=== PATIENT | female | born 2000 | race Caucasian/White ===

== ENCOUNTER 2019-09-27 15:21 | Emergency (ER) | payer OTHER ==
[~2019-09-27] VITALS: Ht 167.6 cm; Wt 75.0 kg
--- NOTE | 2019-09-27 17:33 | NUR ---
Verbal consent obtained for SART exam. Explained rationale for friends to stay in lobby which pt okay with. Noelle, pt advocate [facility] bedside.
[2019-09-27 18:24] LABS: CLARITY,URINE TURBID (Clear); COLOR,URINE YELLOW (Yellow); GLUCOSE, URINE NEGATIVE (Neg); KETONES,URINE 40 mg/dl (Neg); LEUKOCYTE ESTERASE ,URINE LARGE (Neg); NITRITES, URINE POSITIVE (Neg); OCCULT BLOOD,URINE NEGATIVE (Neg); PROTEIN,URINE NEGATIVE (Neg); UROBILINOGEN,URINE 0.2 E.U/dL (0.2-1.0)
[2019-09-27 18:27] LABS: URINE HCG NEGATIVE (NEG)
[2019-09-27 18:28] LABS: UA COLLECTION TYPE VOIDED
[2019-09-27 18:30] LABS: MUCUS STRANDS MANY /LPF (Neg); SQUAMOUS EPITHELIAL CELL,UR MANY /LPF (FEW)
[2019-09-27 18:31] LABS: TRANSITIONAL EPI CELLS,URINE FEW /HPF
[2019-09-27 18:32] LABS: BACTERIA,URINE 4+ /HPF (Neg); RBC,URINE NONE SEEN /HPF (0-2); WBC,URINE TNTC /HPF (0-4)
[2019-09-27] MEDS ORDERED: azithromycin 250mg tablet PO ONE (20:20)
[2019-09-27] MEDS ORDERED: CefTRIAXone 250MG IM Kit w/LIDOcaine IM ONE (20:20)
[2019-09-27] MEDS ORDERED: metroNIDAZOLE 500mg tablet PO ONE (20:20)
--- NOTE | 2019-09-27 22:25 | NUR ---
1750: urine obtained 1814: Written consent for medical release and SART exam obtained after fully explained and questions answered. SART exam started. imtiaz Drake advocate [facility] approved to be in room throughout exam process by pt. 2004: edmd Alase[facility] f/u with pt. Prophylactic STD and pregancy meds ordered. 2019: Prophylactic medications administered after education provided and questions answered. 2036: Pt refused offer for shower opting to take one at home. 2044: Pt discharged after medication regimen reviewed and all questions answered. Pt verbalized understanding including importance of [facility] f/u for further testing.
--- NOTE | 2019-09-27 23:26 | NUR ---
Message left for Coco Maravilla [facility] ([phone]) regarding need for pt f/u testing, HIV/Aids. Pt also provided Coco's telephone number to schedule f/u appt.
[2019-09-27 23:49] VITALS: BP 114/93
== END 2019-09-27 20:45 | disposition home or self-care (01) ==
LOC: EDSEX 15:22 → ER 15:22 → EEVIPCON 15:22 → ER 20:45
DX: S40.022A Contusion of left upper arm, initial encounter (principal); Z88.1 Allergy status to other antibiotic agents; T76.21XA Adult sexual abuse, suspected, initial encounter; Y93.89 Activity, other specified; Y92.89 Other specified places as the place of occurrence of the external cause; Y99.8 Other external cause status
CPT/HCPCS: 81001; 81025; 96372; 99284

== ENCOUNTER 2021-11-17 09:17 | Emergency (ER) | payer MEDICAID, OTHER ==
[~2021-11-17] VITALS: Ht 167.6 cm; Wt 54.0 kg
[2021-11-17 09:20] VITALS: BP 97/79
[2021-11-17] MEDS ORDERED: ATOM10CA PO (09:43)
[2021-11-17] MEDS ORDERED: FLUO10CA28 PO (09:43)
[2021-11-17 10:05] LABS: EOSINOPHILS % (AUTO) 0.4 % (0-6); HEMOGLOBIN 12.9 g/dl (12.0-16.0); NEUTROPHILS # (AUTO) 7.4 X10'3 (1.8-7.7); WHITE BLOOD COUNT 8.3 X10'3 (4.5-11.0)
[2021-11-17 10:07] LABS: BASOPHILS % (AUTO) 0.4 % (0-1); HEMATOCRIT 38.1 % (35.0-45.0); LYMPHOCYTES # (AUTO) 0.6 X10'3 (1.1-4.8); LYMPHOCYTES % (AUTO) 7.8 % (21-51); MEAN CORPUSCULAR HEMOGLOBIN 30.5 PG (27.0-31.0); MEAN CORPUSCULAR HGB CONC 33.8 g/dL (33.0-36.5); MEAN CORPUSCULAR VOLUME 90.3 FL (78-98); MEAN PLATELET VOLUME 11.4 FL (7.4-10.4); MONOCYTES # (AUTO) 0.1 X10'3 (0-0.9); MONOCYTES % (AUTO) 1.6 % (2-12); NEUTROPHILS % (AUTO) 89.8 % (42-75); PLATELET COUNT 156 X10'3 (140-440); RED BLOOD COUNT 4.22 X10'6 (4.20-5.60)
[2021-11-17 10:17] LABS: ALANINE AMINOTRANSFERASE 16 U/L (12-78); ALBUMIN 3.8 G/DL (3.4-5.0); ALBUMIN/GLOBULIN RATIO 1.1 (1.1-1.5); ALKALINE PHOSPHATASE 32 IU/L (46-116); ANION GAP 8 (8-16); ASPARTATE AMINO TRANSFERASE 13 U/L (10-37); BILIRUBIN,TOTAL 1.4 MG/DL (0.1-1.0); BLOOD UREA NITROGEN 10 MG/DL (7-18); BUN/CREATININE RATIO 12.8 (6.6-38.0); CALCIUM 8.7 MG/DL (8.5-10.1); CHLORIDE 107 MMOL/L (99-107); CREATININE 0.78 MG/DL (0.40-0.90); GLUCOSE 119 MG/DL (70-104); LIPASE < 50 U/L (73-393); POTASSIUM 3.5 MMOL/L (3.5-5.1); SODIUM 142 MMOL/L (135-145); TOTAL CARBON DIOXIDE 26.9 MMOL/L (24-32); TOTAL PROTEIN 7.4 G/DL (6.4-8.2); eGFR > 90 ML/MIN
[2021-11-17 10:22] LABS: URINE HCG NEGATIVE (NEG)
[2021-11-17 10:30] LABS: CLARITY,URINE CLOUDY (Clear); COLOR,URINE YELLOW (Yellow); GLUCOSE, URINE NEGATIVE (Neg); KETONES,URINE NEGATIVE (Neg); LEUKOCYTE ESTERASE ,URINE MODERATE (Neg); NITRITES, URINE NEGATIVE (Neg); OCCULT BLOOD,URINE TRACE-INTACT (Neg); PH,URINE 8.5 (4.8-8.0); PROTEIN,URINE 100 mg/dl (Neg)
[2021-11-17 10:43] LABS: UA COLLECTION TYPE NON-SPECIFIED
[2021-11-17 10:44] LABS: BACTERIA,URINE 2+ /HPF (Neg); MUCUS STRANDS NONE SEEN /LPF (Neg); RBC,URINE NONE SEEN /HPF (0-2); SQUAMOUS EPITHELIAL CELL,UR MANY /LPF (FEW); WBC,URINE 50-100 /HPF (0-4)
[2021-11-17] MEDS ORDERED: ciprofloxacin 250mg tablet PO ONE (11:05)
[2021-11-17] MEDS ORDERED: CIPR-202 PO (11:10)
--- NOTE | 2021-11-17 11:50 | NUR ---
Pt given and understands discharge instruction. Ambulatory with a steady gate.
--- NOTE | 2021-11-17 11:50 | NUR ---
Pt given and understands d/c instructions. Ambulatory with a steady.
== END 2021-11-17 11:50 | disposition home or self-care (01) ==
LOC: ER 09:17
DX: N12 Tubulo-interstitial nephritis, not specified as acute or chronic (principal); F41.9 Anxiety disorder, unspecified; F17.200 Nicotine dependence, unspecified, uncomplicated; F12.90 Cannabis use, unspecified, uncomplicated; Z88.1 Allergy status to other antibiotic agents; Z79.899 Other long term (current) drug therapy
CPT/HCPCS: 36415; 80053; 81001; 81025; 83690; 85025; 99283